=== PATIENT | female | born 2000 | race Caucasian/White ===

== ENCOUNTER 2018-10-04 08:07 | Emergency (ER) | payer OTHER ==
[2018-10-04 08:13] VITALS: BP 104/76; PULSE 110; TEMP 98.5; BMI 19.8
--- NOTE | 2018-10-04 08:24 | PDOC ---
History of Present Illness - General Chief Complaint: Cold Symptoms Stated Complaint: SHORTNESS OF BREATH Time Seen by Provider: 10/04/18 08:17 History Source: Patient, Parent(s) Exam Limitations: No Limitations - History of Present Illness Initial Comments: 10/04/18 08:49 complaint fevers, chills, general body aches and malaise worsening over the past few days. His coughing with phlegm , has taken [id number] medications with minimal results. Timing/Duration: reports: getting worse Severity: reports: mild, moderate Associated Symptoms: reports: cough, earache, facial pain, fever/chills, lightheadedness, nasal drainage, shortness of breath Past History - Travel Traveled outside of the country in the last 30 days: No Close contact w/someone who was outside of country & ill: No - Past Medical History Allergies/Adverse Reactions: Allergies Allergy/AdvReac Type Severity Reaction Status Date / Time No Known Allergies Allergy Verified 10/04/18 08:13 Home Medications: Ambulatory Orders Azithromycin [Zithromax -] 250 mg PO UTDICT #6 tab 10/04/18 COPD: No Other medical history: cleft feet - Suicide/Smoking/Psychosocial Hx Smoking History: Never smoked Information on smoking cessation initiated: No Hx Alcohol Use: No Drug/Substance Use Hx: No Review of Systems - Review of Systems Able to Perform ROS?: Yes Is the patient limited Welsh proficient: Yes Constitutional: Yes: Symptoms Reported, See HPI, Malaise HEENTM: Yes: Symptoms Reported, See HPI Respiratory: Yes: Symptoms reported, See HPI, Cough, Shortness of Breath Cardiac (ROS): Yes: See HPI. No: Symptoms Reported Integumentary: Yes: Symptoms Reported Neurological: Yes: Symptoms reported, See HPI, Headache *Physical Exam - Vital Signs Last Vital Signs Temp Pulse Resp BP Pulse Ox 98.5 F 110 H 19 104/76 100 10/04/18 08:10 10/04/18 08:10 10/04/18 08:10 10/04/18 08:10 10/04/18 08:10 - Physical Exam General Appearance: Yes: Nourished, Appropriately Dressed, Apparent Distress, Mild Distress, Moderate Distress HEENT: positive: CAT, TMs Normal (congested but landmarks easily visualized), Pharynx Normal, Rhinorrhea, Sinus Tenderness Neck: positive: Tender, Supple, Lymphadenopathy (R), Lymphadenopathy (L) Respiratory/Chest: positive: Decreased Breath Sounds (difficulty taking deep inspiration secondary to pleuritic chest pain), Rales. negative: Normal Breath Sounds Cardiovascular: positive: Regular Rhythm, Regular Rate Gastrointestinal/Abdominal: positive: Normal Bowel Sounds, Soft. 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, Fully Oriented, Alert, Normal Mood/ Affect, Normal Response, Motor Strength 5/5 Progress Note - Progress Note Progress Note: X-ray shows atelectasis in the right middle lobe, will treat with azithromycin *DC/Admit/Observation/Transfer Diagnosis at time of Disposition: Upper respiratory infection, acute - Discharge Dispostion Disposition: HOME Condition at time of disposition: Stable Decision to Admit order: No - Prescriptions Prescriptions: Azithromycin [Zithromax -] 250 mg PO UTDICT #6 tab - Referrals - Patient Instructions Printed Discharge Instructions: DI for Acute Bronchitis Additional Instructions: Rest, drink lots of fluids: Teas, water, soups, Pedialyte Saltwater gargles Steamy showers/seem to face break up mucus Avoid contact with others until fevers and cough resolved Lots of handwashing and good hygiene Continue [id number] medications for symptomatic relief Tylenol or Motrin for fever and pain Azithromycin as directed Followup with private physician in one to 2 days as needed Return to emergency department for worsened symptoms, fevers, dehydration - Post Discharge Activity
== END 2018-10-04 08:46 | disposition home or self-care (01) ==
LOC: JERFT 08:07
DX: J11.1 Influenza due to unidentified influenza virus with other respiratory manifestations (principal)
CPT/HCPCS: 71046-TC-FY; 99282-25